=== PATIENT | female | born 1930 | race Caucasian/White ===

== ENCOUNTER → 2020-01-03 | Outpatient (CLI) | payer MEDICARE ==
[~2020-01-03] MED LIST: AMLO5 PO; Aspirin EC81 MG PO; CITA20 PO; LOVA40 PO; Mobic15 MG PO; OMEP20ER PO; Synthroid/Le0.075 MG PO
== END | disposition home or self-care (01) ==
LOC: LAB SHORT 19:10 → LAB 19:10
DX: N39.0 Urinary tract infection, site not specified (principal)
CPT/HCPCS: 87086

== ENCOUNTER 2020-05-13 23:05 | Inpatient (IN) | payer MEDICARE ==
[~2020-05-13] VITALS: Ht 162.6 cm; Wt 51.1 kg
[2020-05-13 23:18] LABS: BASOPHILS ABSOLUTE AUTO 0.04 K/mm3 (0.00-0.23); BASOPHILS PERCENT AUTO 0 % (0-2); EOSINOPHILS PERCENT AUTO 0 % (0-6); Hematocrit 36.7 % (33.0-51.0); Hemoglobin 12.4 g/dL (11.5-16.0); IMMATURE GRAN ABSOLUTE AUTO 0.05 K/mm3 (0.00-0.10); IMMATURE GRAN PERCENT AUTO 1 % (0-1); LYMPHOCYTES ABSOLUTE AUTO 0.75 K/mm3 (0.84-5.20); LYMPHOCYTES PERCENT AUTO 7 % (21-46); MONOCYTES ABSOLUTE AUTO 0.44 K/mm3 (0.16-1.47); MONOCYTES PERCENT AUTO 4 % (4-13); Mean Corpuscular HGB 28.6 pg (26.0-34.0); Mean Corpuscular HGB Conc 33.8 g/dL (31.5-36.5); Mean Corpuscular Volume 85 fL (80-100); Mean Platelet Volume 10.2 fL (9.1-12.4); NEUTROPHILS PERCENT AUTO 88 % (41-73); Platelet Count 190 K/mm3 (150-400); RDW Coefficient Variation 12.8 % (11.7-14.2); Red Blood Cell Count 4.34 M/mm3 (3.80-5.20); White Blood Cell Count 10.38 K/mm3 (4.00-11.30)
[2020-05-13 23:38] LABS: Alanine Aminotransfer (ALT/SGP 17 U/L (12-78); Albumin, Blood 3.8 g/dL (3.4-5.0); Albumin/Globulin Ratio 1.1 (0.8-1.8); Alk Phos 79 U/L (50-136); Anion Gap 11 mmol/L (6-16); Aspartate Aminotrans (AST/SGOT 16 U/L (12-37); Bilirubin, Total 0.6 mg/dL (0.1-1.0); Blood Urea Nitrogen 33 mg/dL (8-24); Bun/Creatinine Ratio 30.6 (12.0-20.0); CO2, Blood 22 mmol/L (21-32); CPK Creatine Kinase 125 U/L (26-193); Calcium, Blood 9.4 mg/dL (8.5-10.1); Chloride, Blood 104 mmol/L (98-108); Creatinine, Blood 1.08 mg/dL (0.40-1.00); Globulin, Blood 3.6 g/dL (2.2-4.0); Glomerular Filtration Rate 51 (60-); Glucose, Blood 198 mg/dL (70-99); Potassium, Blood 3.6 mmol/L (3.5-5.5); Sodium, Blood 137 mmol/L (136-145); Total Protein, Blood 7.4 g/dL (6.4-8.2); Troponin I <0.015 ng/mL (0.000-0.040)
[2020-05-14 00:21] LABS: International Normalized Ratio 1.15; Prothrombin Time Results 12.2 Sec (9.7-11.5)
[2020-05-14 00:49] LABS: Source, Urine Catheter
[2020-05-14 00:54] LABS: Bilirubin, Urine Neg (Neg); Blood, Urine 1+ (Neg); Glucose Qualitative, Urine 3+ (Neg); Ketones, Urine 2+ (Neg); Leukocyte Esterase, Urine Neg (Neg); Nitrite, Urine Neg (Neg); Protein, Urine 2+ (Neg); Urobilinogen, Urine NORM (Normal)
[2020-05-14 00:55] LABS: Appearance, Urine Clear (Clear); Color, Urine Pale Yellow (P-Yellow)
[2020-05-14 01:06] LABS: Bacteria Not Seen /hpf; Red Blood Cells, Urine Not Seen /hpf (0-2); Squamous Epithelial Cells Rare /hpf (Few); White Blood Cells, Urine Not Seen /hpf (0-5)
[2020-05-14] MEDS ORDERED: Prozac20 MG PO (02:01)
[2020-05-14 02:19] LABS: Influenza A, PCR NEGATIVE (NEGATIVE); Influenza B, PCR NEGATIVE (NEGATIVE); Resp Syncytial Virus, PCR NEGATIVE (NEGATIVE); SARS-Cov-2 (COVID-19) PCR, MMC NEGATIVE (NEGATIVE)
--- NOTE | 2020-05-14 06:30 | NUR ---
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 PUPILS EQUAL AND REACTIVE BUT SLUGGISH, PRONATOR ARM DRIFT NEGATIVE, STRENGTH EQUAL BILATERALLY. PT HAS NO RECOLLECTION OF HER FALL OR WHEN IT MAY HAVE OCCURRED. PER PTS DAUGHTER, PT LIVES ALONE AND HAS DEMENTIA. PTS BROTHER VISITED HER ON THURSDAY (05/11) AND PT SPOKE WITH HER DAUGHTER THURSDAY MORNING SO DAUGHTER WENT TO PTS HOME AND FOUND BLOOD OUTSIDE THE HOME NEAR SOME STAIRS AND PT IN HER RECLINER WITH SIGNIFCANT BRUISING TO HER FACE. PT CURRENTLY HAS BRUISING/HEMATOMA TO R FOREHEAD, BRUISING TO HER R EYE, R HIP AND LEFT HAND AND AN ABRASION TO HER R SHOULDER. PT REPORTED HEAD PAIN, MEDICATED WITH PRN FENTANYL. PT MEDICATED WITH HYDRALAZINE x1 FOR TARGET SBP<160. Q4H NEURO CHECKS REMAIN UNCHANGED FROM ASSUMPTION OF CARE. PT TAKEN TO CT @ APPROX 0530 FOR REPEART SCAN, RESULTS PENDING. DAUGHTER REMAINS AT BEDSIDE, PT APPEARS TO BE RESTING COMFORTABLY. REPORT GIVEN TO JOVANNY HARDING.
--- NOTE | 2020-05-14 17:40 | NUR ---
SHIFT SUMMARY: PATIENT CONTINUES TO IMPROVE, MENTATION QUINTEROS, THROUGHOUT THE DAY. STILL UNABLE TO COMPLETLY RECALL WHAT HAPPENED, BUT THINKS SHE FELL ON THE FRONT STEPS (CONCRETE). PAIN STILL AN ISSUE IN THE RIGHT ARM. PUT A SLING ON IT EARLY DURING THE SHIFT AND AN XRAY WAS DONE. ORTHO (DR. YOUNG) CALLED AND MESSAGE LEFT ON HIS CELL PHONE. XRAY SHOWED RIGHT RADIAL HEAD FRACTURE. FAMILY HAS BEEN INFORMED OF PROGRESS. BEBETO IS THE POWER OF REAMING PRESS OPERATOR (BROTHER) AND HE IS WHO IS TO BE CALLED WITH UPDATES. PAIN MEDS ORDERED, PT DEVELOPED NAUSEA, SO SUGGEST NAUSEA MEDS BEFORE PAIN MEDS. VSS, AND PT IS NOW MEDICAL WTH NO TELE, AWAITING BED
--- NOTE | 2020-05-14 20:16 | NUR ---
ASSUMPTION OF CARE PT AWAKE IN BED, ORIENTED TO SELF, EVENT (ALTHOUGH DOES NOT RECALL ACCIDENT), LOCATION, YEAR, AND FOLLOWING DIRECTIONS. PT HARD OF HEARING, BUT MUCH MORE ALERT AND QUICKER TO RESPOND THAN PREVIOUS SHIFT. BRUISING TO R FORHEAD AND EYE WRAPS AROUND TO BEHIND R EAR AND DOWN PTS NECK. PT DENIES PAIN, REPORTS NAUSEA, MEDICATED WITH ZOFRAN. R ARM IN SPLINT, PLACED RECENTLY, TO BE ELEVATED ON PILLOW THROUGHOUT NIGHT. VSS, PT ON ROOM AIR, MAE. ROJO IN PLACE AND DRAINING CLEAR YELLOW URINE.
--- NOTE | 2020-05-14 20:44 | NUR ---
REPORT GIVEN TO JAYCEE HARDING
--- NOTE | 2020-05-14 21:00 | NUR ---
ASSUMED CARE ASSUMED CARE. RECEIVE REPORT FROM MEAGHAN WILKINSON.
--- NOTE | 2020-05-15 06:45 | NUR ---
SHIFT SUMMARY PT ALERT AND ORIENTED X 4. FORGETFUL AT TIMES, ABLE TO RE-DIRECT. BP STABLE. HR STABLE. OXYGEN SATURATION ABOVE 92% ON RA. PT REPORTS PAIN THIS AM, MEDICATED PER EMAMir ROJO PATENT TO GRAVITY. NO CP OR PRESSURE REPORTED. PT ABLE TO TURN SELF IN BED. ASSISTED NEEDED. WILL CONTINUE TO MONITOR UNTIL REPORT GIVEN TO DAYSHIFT RN.
--- NOTE | 2020-05-15 07:00 | NUR ---
ASSUMED CARE PT WAS CONFUSED AFTER WAKING OVERNIGHT, PAIN CONTROL WAS AN ISSUE. PT WAS AFRAID SHE WOULD BE ALLERGIC TO PAIN MEDS, BUT SHE DID FINE WITH THE PAIN MEDS DURING DAY SHIFT. TOOK A BIT OF CONVINCING BUT SHE TOOK MEDS WITH GOOD RELIEF OF PAIN. VSS, PT NOW MEDICAL STATUS WITH NO TELE. WILL MONITOR BP'S Q 8 HRS
--- NOTE | 2020-05-15 14:11 | NUR ---
ROJO REMOVED WITH NO ISSUES
--- NOTE | 2020-05-15 17:00 | NUR ---
REPORT CALLED TO SEE HARDING, PT GOING TO ROOM 208. PT UP TO BEDSIDE COMMODE WITH 1 ASSIST, HAD FIRST URINE AFTER ROJO D/C. RN INFORMED AND ALL QUESTIONS ANSWERED. TRANSPORTED VIA WHELLCHAIR TO ROOM 208. RN IN ROOM AND DINNER TRAY AT BEDSIDE.
--- NOTE | 2020-05-15 18:09 | NUR ---
PT ARRIVED TO THE ROOM FROM ICU AT APPROXIMATELY 1730. PT IS ALERT AND ORIENTED. SHE ANSWERED QUESTIONS APPROPRIATELY. PT IS HARD OF HEARING. PT BECAME NAUSEATED WHEN SMELLING FOOD, ZOFRAN GIVEN. PT'S IV BEGAN LEAKING, REMOVED AND NEW IV PLACED. IV FLUIDS RESUMED PER ORDER. WILL CONTINUE TO MONITOR.
--- NOTE | 2020-05-16 06:20 | NUR ---
SHIFT SUMMARY LYING IN SEMI FOWLERS WITH EYES OPEN. BLADDER SCAN SHOWS 396ML IN BLADDER. 2ND STRAIGHT CATH THIS SHIFT COMPLETED USING STERILE TECHNIQUE RESULTING IN 450ML URINE OUT THIS TIME. TOLERATED EACH STRAIGHT CATH WELL. OTHERWISE HAS RESTED WELL THIS SHIFT. RIGHT HIP MOVEMENT UNCOMFORTABLE, PT CALLS OUT AND WINCES EACH TIME IT IS MOVED. PT ENCOURAGED TO WORK WITH NURSING IN MOVING BLE, ATTEMPTS TO COOPERATE. PICC LINE FLUSHES, BUT WILL NOT DRAW BACK. DENIES PAIN, DISCOMFORT, OR FURTHER NEEDS AT THIS TIME. SAFETY MEASURES IN PLACE. WILL CONTINUE TO MONITOR AND GIVE HAND OFF TO ONCOMING SHIFT USING SBAR DURING BEDSIDE REPORT.
--- NOTE | 2020-05-16 06:29 | NUR ---
SHIFT SUMMARY LYING IN SEMI FOWLERS WITH EYES CLOSED, HAS RESTED WELL THIS SHIFT. ABLE TO REPOSITION SELF IN BED. CONTUSIONS AND ABRASIONS NOTED SCATTERED ON BODY, MOSTLY CONCENTRATED ON RIGHT SIDE. PIV IS PATENT, INFUSIN NS AT 75ML/HR PER MD ORDERS. DENIES PAIN, DISCOMFORT, OR FURTHER NEEDS AT THIS TIME. SAFETY MEASURES IN PLACE. WILL CONTINUE TO MONITOR AND GIVE HAND OFF TO ONCOMING SHIFT USING SBAR DURING BEDSIDE REPORT.
--- NOTE | 2020-05-16 13:38 | NUR ---
SHE IS BACK IN BED AFTER BEING UP IN THE CHAIR FOR ABOUT 3 HRS. BOTH OT AND PT WORKED WITH HER. SHE USES A LINDA-WALKER WELL BUT NEEDS A GAITBELT BECAUSE SHE CAN GET DIZZY AND EVER SLIGHTLY. IN ADDITION TO THE DIZZINESS WITH MOVEMENT, SHE GET NAUSEATED. NO EMESIS AND SHE IS EATING PRETTY WELL. HER URINE IS CLOUDY AND FOUL SMELLING. I HEARD HER TELL SHE HAD A RECENT UTI. HER FACE LOOKS PRETTY DRAMATIC FROM HER FALL. THE GOOSE EGG AND BRUISING ARE VERY EVIDENT. HER R ARM IS SPLINTED. HER PAIN IS MOSTLY IN HER HEAD AND BACK, NOT HER ARM. SHE IS FORGETFUL. SHE HAS ONE HEARING AID HERE AND 1 AT HOME. HER BROTHER CALLED TO CHECK ON HER. I GAVE HIM THE ROOM NUMBER SO HE CAN CALL HER DIRECTLY. HOPEFULLY SHE WILL BE ABLE TO HEAR HIM. IVF'S CONTINUE. HER ORAL TEMPERATURE IS NORMAL.
--- NOTE | 2020-05-16 14:37 | NUR ---
SHE IS SLEEPING COMFORTABLY. BED ALARM ON. THE TRANSFERRER SPENT TIME WITH HER EARLIER TODAY.
--- NOTE | 2020-05-16 14:44 | NUR ---
HIS HEADACHE IS NEARLY GONE AFTER THE OXYCODONE. BOWEL CARE ORDERS RECEIVED. WILL START TONIGHT. HIS PO INTAKE IS ONLY 5%.
--- NOTE | 2020-05-16 15:14 | NUR ---
HER SON CORINA IS AT THE BEDSIDE AND SOMEONE ELSE IN THE FAMILY DROPPED OFF AT THE DOOR HER OTHER HEARING AID, BATTERIES FOR IT AND HER 2 PARTIALS.
--- NOTE | 2020-05-16 16:15 | NUR ---
MD NOTIFIED OF THE NEED FOR BOWEL CARE AND THAT ALLAN JUST REPORTED TO ME THAT SHE THINKS HER DIZZINESS AND HER THINKING IS WORSE TODAY THAN YESTERDAY. MD WILL PUT IN ORDERS.
--- NOTE | 2020-05-16 17:03 | NUR ---
SHE IS ON HER WAY TO CT NOW BECAUSE OF HER C/O MORE DIZZINESS TODAY AND MORE DIFFICULTY THINKING. SHE IS MORE ORIENTED THIS AFTERNOON (WHEN SHE SAID THAT) THAN THIS MORNING BUT I DID NOT WORK WITH HER YESTERDAY. SHE IS ORIENTED ENOUGH TO KNOW SOMETHING IS WRONG. NO CHANGES IN HER NEURO ASSESSMENT. HER PUPILS ARE EQUAL IN SIZE. SHE HAS HAD NAUSEA ASSOCIATED WITH THE DIZZINESS TODAY BUT NO EMESIS. HER SON VISITED. SHE NOW HAS BOTH HEARING AIDES AND HER PARTIALS. HER URINE IS CLOUDY AND FOUL SMELLING. UA 2 DAYS AGO WAS NEGATIVE. IVF'S HAVE BEEN DC'D. WE WILL CONTINUE TO ENCOURAGE PO INTAKE. PLAN IS FOR DC TO REHAB TOMORROW, BUT FIRST BOWEL CARE TONIGHT.
--- NOTE | 2020-05-16 17:21 | NUR ---
BACK FROM CT. MIRALAX STARTED.
--- NOTE | 2020-05-16 18:02 | NUR ---
Spiritual care note: Mrs. Yap is very [place], therefore conversation is rather difficult. She appears quite lucid and reasonable. She is fearful of losing her independance. She has a dtr with "bad" bi-polar disorder and she really does not want to live with her. Her 6 yrs ago and she still misses him. She lives in a [facility] and feels well loved and supported by neighbors there. Unfortunately, most of them are elderly and unable to do much for her physically. She became tearful several times throughout our conversation. I provided emotional affirmation and gentle staff counsel to good effect. We had an easy rapport and she appeared to benefit from being heard and understood. Encouraged her to speak up for herself and be willing to accept help. Prayer for a clear path provided. I will remain available.
--- NOTE | 2020-05-17 05:37 | NUR ---
SHIFT SUMMARY PT RESTED WELL T/O NIGHT. AAOX4. PT REPORTING GENERALIZED DISCOMFORT DECREASED WITH 1 NORCO X2 THIS SHIFT. NO NAUSEA/EMESIS. SCATTERED ABRASIONS + BRUISING WITH NO CHANGE THIS SHIFT. RUE IN [place] WRAP. NEURO CHECKS Q4H, NEGATIVE T/O SHIFT. UP TO RESTROOM WITH HEMIWALKER + GAIT BELT SBA, PT UNSTABLE GAIT CONTINUES. POSSIBLE TRANSFER TO SNF TODAY. BED ALARM ON FOR SAFETY. PT CURRENTLY RESTING IN BED WITH CALL LIGHT IN REACH. WILL REPORT OFF TO DAY SHIFT RN DURING BEDSIDE REPORT.
--- NOTE | 2020-05-17 10:04 | NUR ---
CALLED TO ROOM BY PT. PT STATES SHE IS FINDING IT HARD TO "FIND MY THOUGHTS" PT STATES THIS IS A CHANGE FROM THIS MORNING. PT HOLDING HAND TO FOREHEAD AND TELLS ME "I AM FINDING IT HARD TO THINK" PT ALSO REPORTS WRITING ON BLACKBOARD IN ROOM LOOK FUZZY WHICH SHE STATES IS A CHANGE FROM THIS MORNING. PT REPORTS FEELING SCARED. SPOKE WITH DR CADET TO DISCUSS THESE CHANGES.
[2020-05-17 13:45] LABS: Influenza A, PCR NEGATIVE (NEGATIVE); Influenza B, PCR NEGATIVE (NEGATIVE); Resp Syncytial Virus, PCR NEGATIVE (NEGATIVE); SARS-Cov-2 (COVID-19) PCR, MMC NEGATIVE (NEGATIVE)
--- NOTE | 2020-05-17 16:14 | NUR ---
REPORT PHON[facility] TO [facility]. PT IS IN AGREEMENT WITH PLAN TO TRANSFER TO SNF
--- NOTE | 2020-05-17 17:17 | NUR ---
DISCHARGED VIA [facility] TO TRANSFER TO [facility]
== END 2020-05-17 17:23 | disposition home or self-care (01) | DRG 84 ==
LOC: ER 23:05 → ICUW 05-14 01:04 → SURS 05-15 16:58 → ICUW 05-15 16:58 → SURS 05-17 17:23
PROVIDERS: Emergency Medicine; Hospitalist; ADMIT Surgery
DX: S06.6X0A Traumatic subarachnoid hemorrhage without loss of consciousness, initial encounter (principal); S06.5X9A Traumatic subdural hemorrhage with loss of consciousness of unspecified duration, initial encounter; Y93.9 Activity, unspecified; Y92.9 Unspecified place or not applicable; Z79.82 Long term (current) use of aspirin; Z87.891 Personal history of nicotine dependence; I16.0 Hypertensive urgency; H91.90 Unspecified hearing loss, unspecified ear; W18.30XA Fall on same level, unspecified, initial encounter; S00.83XA Contusion of other part of head, initial encounter; F32.9 Major depressive disorder, single episode, unspecified; Z20.822 Contact with and (suspected) exposure to COVID-19; S52.134A Nondisplaced fracture of neck of right radius, initial encounter for closed fracture
CPT/HCPCS: 0241U; 51702; 70450; 71045; 72125; 73030; 73060; 73080; 73090; 80053; 81001; 82550; 83690; 84484; 85025; 85610; 93005; 93010; 96374-59; 96375; 97110; 97116; 97162; 97166; 97530; 97535; 99285-25; A9270; J0360; J2405; J3010; J7030; L0160

== ENCOUNTER 2020-06-11 20:11 | Emergency (ER) | payer MEDICARE ==
[~2020-06-11] VITALS: Ht 160 cm; Wt 59.0 kg
[~2020-06-11 20:11] MED LIST changes: +Prozac20 MG PO
[2020-06-11] MEDS ORDERED: ZYRTEC10 M2 PO (20:46)
[2020-06-11] MEDS ORDERED: Prinivil10 MG PO (20:47)
[2020-06-11] MEDS ORDERED: HYDR1TAB94 PO (20:49)
[2020-06-11 21:08] LABS: BASOPHILS ABSOLUTE AUTO 0.04 K/mm3 (0.00-0.23); BASOPHILS PERCENT AUTO 1 % (0-2); EOSINOPHILS ABSOLUTE AUTO 0.07 K/mm3 (0.00-0.68); EOSINOPHILS PERCENT AUTO 1 % (0-6); Hematocrit 39.6 % (33.0-51.0); Hemoglobin 13.1 g/dL (11.5-16.0); IMMATURE GRAN ABSOLUTE AUTO 0.03 K/mm3 (0.00-0.10); IMMATURE GRAN PERCENT AUTO 0 % (0-1); LYMPHOCYTES ABSOLUTE AUTO 1.79 K/mm3 (0.84-5.20); LYMPHOCYTES PERCENT AUTO 23 % (21-46); MONOCYTES ABSOLUTE AUTO 0.98 K/mm3 (0.16-1.47); MONOCYTES PERCENT AUTO 13 % (4-13); Mean Corpuscular HGB 28.4 pg (26.0-34.0); Mean Corpuscular HGB Conc 33.1 g/dL (31.5-36.5); Mean Corpuscular Volume 86 fL (80-100); Mean Platelet Volume 9.5 fL (9.1-12.4); NEUTROPHILS ABSOLUTE AUTO 4.82 K/mm3 (1.96-9.15); NEUTROPHILS PERCENT AUTO 62 % (41-73); Platelet Count 258 K/mm3 (150-400); RDW Coefficient Variation 14.1 % (11.7-14.2); RDW Standard Deviation 43.8 fL (35.1-46.3); Red Blood Cell Count 4.62 M/mm3 (3.80-5.20); White Blood Cell Count 7.73 K/mm3 (4.00-11.30)
[2020-06-11 21:37] LABS: Source, Urine Voided
[2020-06-11 21:43] LABS: Albumin, Blood 3.8 g/dL (3.4-5.0); Albumin/Globulin Ratio 1.1 (0.8-1.8); Bilirubin, Total 0.8 mg/dL (0.1-1.0); Calcium, Blood 10.3 mg/dL (8.5-10.1); Creatinine, Blood 1.1 mg/dL (0.40-1.00); Globulin, Blood 3.6 g/dL (2.2-4.0); Potassium, Blood 3.8 mmol/L (3.5-5.5); Thyroid Stimulating Hormone 3.81 uIU/mL (0.360-4.800); Total Protein, Blood 7.4 g/dL (6.4-8.2)
[2020-06-11 21:47] LABS: Bilirubin, Urine Neg (Neg); Blood, Urine Neg (Neg); Glucose Qualitative, Urine Neg (Neg); Ketones, Urine Neg (Neg); Leukocyte Esterase, Urine Neg (Neg); Nitrite, Urine Neg (Neg); Protein, Urine 2+ (Neg); Specific Gravity, Urine 1.015 (1.003-1.022); Urobilinogen, Urine NORM (Normal)
[2020-06-11 21:51] LABS: Appearance, Urine Clear (Clear); Color, Urine Yellow (P-Yellow)
[2020-06-11 21:53] LABS: Amorphous Light (0-Heavy); Bacteria Few /hpf; Mucus Light (0-Heavy); Squamous Epithelial Cells Not Seen /hpf (Few); White Blood Cells, Urine 0-2 /hpf (0-5)
== END 2020-06-11 22:51 | disposition home or self-care (01) ==
LOC: ER 20:11
PROVIDERS: Emergency Medicine
DX: R03.1 Nonspecific low blood-pressure reading (principal); E03.9 Hypothyroidism, unspecified; I10 Essential (primary) hypertension; I25.10 Atherosclerotic heart disease of native coronary artery without angina pectoris; K21.9 Gastro-esophageal reflux disease without esophagitis; E78.5 Hyperlipidemia, unspecified; Z88.6 Allergy status to analgesic agent; Z79.899 Other long term (current) drug therapy; Z87.891 Personal history of nicotine dependence
CPT/HCPCS: 36415; 70450; 80053; 81001; 84443; 85025; 93005; 93010; 99285-25; P9612

== ENCOUNTER → 2020-09-21 | Outpatient (CLI) | payer MEDICARE ==
[~2020-09-21] MED LIST changes: +HYDR1TAB94 PO; +Prinivil10 MG PO; +ZYRTEC10 M2 PO
== END | disposition home or self-care (01) ==
LOC: LAB SHORT 13:52 → LAB 13:52
DX: N39.0 Urinary tract infection, site not specified (principal)
CPT/HCPCS: 87086

== ENCOUNTER → 2020-12-26 | Outpatient (CLI) | payer MEDICARE | END | disposition home or self-care (01) | LOC: LAB SHORT 14:45 | PROVIDERS: Family Medicine | DX: Z12.4 Encounter for screening for malignant neoplasm of cervix (principal) | CPT/HCPCS: G0145 ==